=== PATIENT | male | born 1960 | race Two or more races ===

== ENCOUNTER 2019-08-31 20:18 | Inpatient (IN) | payer BC ==
[~2019-08-31] VITALS: Ht 170.2 cm; Wt 106.3 kg
--- NOTE | 2019-08-31 20:27 | NUR ---
sotero. report received from [facility]. pt altered in the morning per pt's family and went to [place]. denies trauma/loc. -ct, but trop is 0.12 at [place]. denies cp/sob. pt's aox4. resps even and unlabored. all monitors in place. call light within reach. rails up x2. 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 ekg done at bedside.
[2019-08-31 20:58] LABS: MEAN CORPUSCULAR HEMOGLOBIN 32.6 pg (27.5-34.5); MEAN PLATELET VOLUME 8.7 fL (7.4-10.4); PLATELET COUNT 230 x10^3/uL (130-400); RED BLOOD COUNT 5.27 x10^6/uL (4.38-5.82); RED CELL DISTRIBUTION WIDTH 14.8 % (9.4-14.8)
[2019-08-31] MEDS ORDERED: LISI-170 PO (21:09)
[2019-08-31] MEDS ORDERED: ATOR10TA9 PO (21:09)
[2019-08-31 21:11] LABS: ALANINE AMINOTRANSFERASE 44 U/L (12-78); ALBUMIN 3.7 g/dL (3.4-5.0); ANION GAP 7 mmol/L (5-15); CALCIUM 8.9 mg/dL (8.5-10.1); CHLORIDE 107 mmol/L (98-107); CREATININE 0.91 mg/dL (0.7-1.3)
--- NOTE | 2019-08-31 21:12 | NUR ---
pt resting in [facility]. pt's aox4. resps even and unlabored. all monitors in place. call light within reach.
[2019-08-31 21:15] LABS: ALKALINE PHOSPHATASE 67 U/L (45-117); BILIRUBIN,TOTAL 0.6 mg/dL (0.2-1.0); TOTAL PROTEIN 7.2 g/dL (6.4-8.2)
[2019-08-31 21:17] LABS: TROPONIN I 0.242 ng/mL (0.000-0.045)
[2019-08-31 21:34] LABS: BASOPHILS # (AUTO) 0.03 x10^3/uL (0-0.1); BASOPHILS % (AUTO) 0 % (0-1); EOSINOPHILS # (AUTO) 0.25 x10^3/uL (0-0.4); EOSINOPHILS % (AUTO) 2 % (1-7); LYMPHOCYTES # (AUTO) 3.18 x10^3/uL (1-3.4); LYMPHOCYTES % (AUTO) 23 % (22-44); MD SCAN; MONOCYTES # (AUTO) 1.48 x10^3/uL (0.2-0.8); MONOCYTES % (AUTO) 11 % (2-9); NEUTROPHILS # (AUTO) 8.63 x10^3/uL (1.8-6.8); NEUTROPHILS % (AUTO) 64 % (42-75)
--- NOTE | 2019-08-31 21:45 | NUR ---
some snacks and juice provided at this time.
[2019-08-31] MEDS ORDERED: MORPHINE SULFATE 4 MG/ML, 1ML IVPush PRN (22:00)
[2019-08-31] MEDS ORDERED: ONDANSETRON 2MG/ML, 2ML IVPush PRN ×2 (22:00→23:30)
--- NOTE | 2019-08-31 22:30 | NUR ---
HOSPITALIST AT BEDSIDE AT THIS TIME.
--- NOTE | 2019-08-31 22:36 | NUR ---
REPORT GIVEN TO [facility]. ALL QUESTIONS ANSWERED.
[2019-08-31 23:27] VITALS: BP 113/60
[2019-08-31] MEDS ORDERED: ACETAMINOPHEN 325 MG TABLET PO PRN (23:30)
[2019-08-31] MEDS ORDERED: morphine SULFATE 10 MG/ML, 1ML IVPush PRN (23:30)
[2019-08-31] MEDS ORDERED: TRAZODONE 50MG TABLET PO PRN (23:30)
[2019-08-31] MEDS ORDERED: hydrALAzine 20 MG/ML, 1ML IVPush PRN (23:30)
[2019-08-31 23:49] VITALS: BP 161/94
[2019-08-31 23:50] VITALS: BP 157/90
[2019-08-31 23:52] VITALS: BP 144/77
[2019-09-01] VITALS (9 sets, daily range): BP systolic 128–168; BP diastolic 79–95
[2019-09-01 03:11] LABS: BASOPHILS # (AUTO) 0.04 x10^3/uL (0-0.1); BASOPHILS % (AUTO) 0 % (0-1); EOSINOPHILS # (AUTO) 0.25 x10^3/uL (0-0.4); EOSINOPHILS % (AUTO) 2 % (1-7); LYMPHOCYTES # (AUTO) 2.95 x10^3/uL (1-3.4); LYMPHOCYTES % (AUTO) 24 % (22-44); MD NO; MEAN CORPUSCULAR HEMOGLOBIN 32.5 pg (27.5-34.5); MEAN CORPUSCULAR HGB CONC 33.7 g/dL (33.2-36.2); MEAN CORPUSCULAR VOLUME 96.6 fL (81-97); MEAN PLATELET VOLUME 9.1 fL (7.4-10.4); MONOCYTES # (AUTO) 1.44 x10^3/uL (0.2-0.8); MONOCYTES % (AUTO) 12 % (2-9); NEUTROPHILS # (AUTO) 7.66 x10^3/uL (1.8-6.8); NEUTROPHILS % (AUTO) 62 % (42-75); PLATELET COUNT 220 x10^3/uL (130-400); RED BLOOD COUNT 5.24 x10^6/uL (4.38-5.82); RED CELL DISTRIBUTION WIDTH 14.8 % (9.4-14.8)
[2019-09-01 03:23] LABS: ALANINE AMINOTRANSFERASE 48 U/L (12-78); ALBUMIN 3.6 g/dL (3.4-5.0); ANION GAP 4 mmol/L (5-15); CALCIUM 8.8 mg/dL (8.5-10.1); CHLORIDE 105 mmol/L (98-107); CHOLESTEROL, TOTAL 236 mg/dL (140-239); CREATININE 0.98 mg/dL (0.7-1.3)
[2019-09-01 03:28] LABS: ALKALINE PHOSPHATASE 69 U/L (45-117); BILIRUBIN,TOTAL 0.6 mg/dL (0.2-1.0); CHOL/HDL RATIO 7.2; HDL CHOL % 14 % (26-37); HDL CHOLESTEROL (DIRECT) 33 mg/dL (40-60); LDL CHOLESTEROL,CALCULATED 149 mg/dL (54-169); LDL/HDL RATIO 4.5 (0.5-3.0); TRIGLYCERIDES 270 mg/dL (50-200); TROPONIN I 0.117 ng/mL (0.000-0.045); VLDL CHOLESTEROL 54 mg/dL (0-25)
[2019-09-01] MEDS ORDERED: ASPIRIN 325 MG TABLET EC PO SCH (06:00)
[2019-09-01] MEDS: ASPIRIN 81 MG TABLET CHEW PO SCH (09:33)
[2019-09-01] MEDS: LISINOPRIL 20 MG TABLET PO SCH (09:33)
[2019-09-01 09:46] LABS: TROPONIN I 0.059 ng/mL (0.000-0.045)
[2019-09-01] MEDS ORDERED: LEVETIRACETAM 100 MG/ML, 5ML IV ONE (12:00)
[2019-09-01] MEDS ORDERED: LEVETIRACETAM 1,500 MG in SODIUM CHLORIDE 0.9% 100 ML IV ONE (12:00)
[2019-09-01] MEDS ORDERED: GADOTERATE 10 MMOL/20 ML SYR ONE (14:51)
[2019-09-01] MEDS: ATORVASTATIN 40 MG TABLET PO SCH (20:10)
[2019-09-01] MEDS: LEVETIRACETAM 500 MG TABLET PO SCH (20:11)
[2019-09-02] VITALS (8 sets, daily range): BP systolic 103–161; BP diastolic 70–94
[2019-09-02 04:34] LABS: BASOPHILS # (AUTO) 0.04 x10^3/uL (0-0.1); BASOPHILS % (AUTO) 0 % (0-1); EOSINOPHILS # (AUTO) 0.26 x10^3/uL (0-0.4); EOSINOPHILS % (AUTO) 3 % (1-7); LYMPHOCYTES # (AUTO) 2.71 x10^3/uL (1-3.4); LYMPHOCYTES % (AUTO) 27 % (22-44); MD NO; MEAN CORPUSCULAR HEMOGLOBIN 32.6 pg (27.5-34.5); MEAN CORPUSCULAR HGB CONC 33.5 g/dL (33.2-36.2); MEAN CORPUSCULAR VOLUME 97.2 fL (81-97); MEAN PLATELET VOLUME 9.2 fL (7.4-10.4); MONOCYTES # (AUTO) 1.03 x10^3/uL (0.2-0.8); MONOCYTES % (AUTO) 10 % (2-9); NEUTROPHILS # (AUTO) 6.05 x10^3/uL (1.8-6.8); NEUTROPHILS % (AUTO) 60 % (42-75); PLATELET COUNT 221 x10^3/uL (130-400)
[2019-09-02 04:48] LABS: ALANINE AMINOTRANSFERASE 46 U/L (12-78); ALBUMIN 3.4 g/dL (3.4-5.0); ANION GAP 4 mmol/L (5-15); CALCIUM 8.8 mg/dL (8.5-10.1); CHLORIDE 108 mmol/L (98-107)
[2019-09-02 04:51] LABS: ALKALINE PHOSPHATASE 69 U/L (45-117); BILIRUBIN,TOTAL 0.4 mg/dL (0.2-1.0); CREATININE 0.83 mg/dL (0.7-1.3); TOTAL PROTEIN 6.9 g/dL (6.4-8.2)
[2019-09-02] MEDS: LEVETIRACETAM 500 MG TABLET PO SCH ×2 (09:48→21:22)
[2019-09-02] MEDS: LISINOPRIL 20 MG TABLET PO SCH (09:49)
[2019-09-02] MEDS: ASPIRIN 81 MG TABLET CHEW PO SCH (09:49)
[2019-09-02 12:32] LABS: MICROSCOPIC NOT IND
[2019-09-02 12:38] LABS: CULTURE INDICATED? NO
[2019-09-02] MEDS: ATORVASTATIN 40 MG TABLET PO SCH (21:22)
[2019-09-03 01:55] VITALS: BP 133/86
[2019-09-03 07:19] VITALS: BP 134/81
[2019-09-03] MEDS ORDERED: REGADENOSON 0.4 MG/5 ML SYRINGE ONE (08:27)
[2019-09-03] MEDS: ASPIRIN 81 MG TABLET CHEW PO SCH (12:04)
[2019-09-03] MEDS: LEVETIRACETAM 500 MG TABLET PO SCH (12:04)
[2019-09-03] MEDS: LISINOPRIL 20 MG TABLET PO SCH (12:05)
[2019-09-03] MEDS ORDERED: LEVE500T53 PO (12:59)
[2019-09-03 13:01] VITALS: BP 153/95
== END 2019-09-03 15:40 | disposition home or self-care (01) | DRG 100 ==
LOC: ED 20:27 → EDIP 22:21 → 5SO 23:16
PROVIDERS: ADMIT Family Medicine; ATTEND Internal Medicine
DX: G40.409 Other generalized epilepsy and epileptic syndromes, not intractable, without status epilepticus (principal); I21.A1 Myocardial infarction type 2; E11.9 Type 2 diabetes mellitus without complications; E66.9 Obesity, unspecified; E78.5 Hyperlipidemia, unspecified; F17.210 Nicotine dependence, cigarettes, uncomplicated; H53.40 Unspecified visual field defects; H54.61 Unqualified visual loss, right eye, normal vision left eye; I10 Essential (primary) hypertension; Z91.14 Patient's other noncompliance with medication regimen; Z79.899 Other long term (current) drug therapy; Z68.36 Body mass index [BMI] 36.0-36.9, adult
CPT/HCPCS: 36415; 70553; 78452; 80053; 80061; 81003; 83036; 83735; 83880; 84100; 84443; 84484; 85025; 93005; 93017; 93306; 93880; 95819; 99285; G0378; J1953; J2785; A9502; A9575